=== PATIENT | male | born 1985 | race Caucasian/White ===

== ENCOUNTER 2016-10-07 22:02 | Emergency (ER) | payer SELFPAY ==
[~2016-10-07] VITALS: Ht 162.6 cm; Wt 81.6 kg
[2016-10-07 22:05] VITALS: BP 140/89
[2016-10-07] MEDS ORDERED: ACETAMINOPHEN EXTRA STRENGTH 500 MG TAB ONE (23:32)
--- NOTE | 2016-10-07 23:48 | NUR ---
PT TAKEN TO BED 1
[2016-10-08] MEDS ORDERED: ONDANSETRON 4 MG/2 ML VIAL IVP ONE (00:05)
[2016-10-08] MEDS ORDERED: NACL 0.9% 1,000 ML IV ONE (00:05)
--- NOTE | 2016-10-08 00:10 | NUR ---
PATIENT PRESENTS TO ED WITH HEADACHE . PT STATES HE HAS BEEN FEELING NAUSEOUS AND AND VOMITING FOR 3 DAYS AND THAT TYLENOL ONL HELPS MOMENTARILY AND THEN IT CAUSES HEADACHE TO WORSEN . DENIES DIARRHEA; SKIN IS PINK/WARM/DRY; AAOX4 WITH EVEN AND STEADY GAIT; LUNGS CLEAR BL; HR EVEN AND REGULAR; PT DENIES ANY FEVER, CP, SOB, OR COUGH AT THIS TIME; PATIENT STATES PAIN OF 8/10 AT THIS TIME; VSS; PATIENT POSITIONED FOR COMFORT; HOB ELEVATED; BEDRAILS UP X2; BED DOWN. ER MD MADE AWARE OF PT STATUS.
[2016-10-08 02:48] VITALS: BP 124/73
--- NOTE | 2016-10-08 02:50 | NUR ---
Patient discharged with v/s stable. Written and verbal after care instructions given and explained. Patient alert, oriented and verbalized understanding of instructions. Ambulatory with steady gait. All questions addressed prior to discharge. ID band removed. Patient advised to follow up with PMD. Rx of ONDANSETRON given. Patient educated on indication of medication including possible reaction and side effects. Opportunity to ask questions provided and answered.
== END 2016-10-08 02:50 | disposition home or self-care (01) ==
LOC: MED 22:02
DX: B34.9 Viral infection, unspecified (principal)
CPT/HCPCS: 96361; 96374; 99284; J2405; J7030

== ENCOUNTER 2024-04-03 06:36 | Emergency (ER) | payer BC ==
[~2024-04-03] VITALS: Ht 162.6 cm; Wt 77.1 kg
[2024-04-03 06:49] VITALS: BP 147/110; PULSE 108; RESP 16; TEMP 97.2; O2SAT 97
[2024-04-03 07:32] LABS: BASOPHILS # (AUTO) 0.1 K/uL (0.00-0.22); BASOPHILS % (AUTO) 0.6 % (0.0-2.0); EOSINOPHILS # (AUTO) 0.1 K/uL (0-0.4); EOSINOPHILS % (AUTO) 0.8 % (0.0-4.0); HEMATOCRIT 45.4 % (36-52); HEMOGLOBIN 16.1 g/dL (12.0-18.0); LYMPHOCYTES # (AUTO) 1.1 K/uL (2.0-11.5); LYMPHOCYTES % (AUTO) 11.1 % (20.5-51.1); MEAN CORPUSCULAR HEMOGLOBIN 31 pg (27-31); MEAN CORPUSCULAR HGB CONC 35 g/dL (33-37); MEAN CORPUSCULAR VOLUME 88.8 fL (80-94); MONOCYTES # (AUTO) 0.5 K/uL (0.8-1.0); MONOCYTES % (AUTO) 4.7 % (1.7-9.3); NEUTROPHILS # (AUTO) 8.2 K/uL (1.8-7.7); NEUTROPHILS % (AUTO) 82.8 % (42.2-75.2); PLATELET COUNT (AUTO) 263 K/uL (140-450); RED BLOOD CELL COUNT(AUTO) 5.11 MIL/uL (4.20-6.10); RED CELL DISTRIBUTION WIDTH 12.9 % (11.6-13.7); WHITE BLOOD COUNT (AUTO) 9.9 K/uL (4.8-10.8)
[2024-04-03] MEDS: NACL 0.9% 1,000 ML IV ONE (07:39)
[2024-04-03] MEDS: ONDANSETRON 4 MG/2 ML VIAL IVP ONE (07:39)
[2024-04-03 07:47] LABS: ANION GAP 15.7 (8-16); CARBON DIOXIDE 26.2 mmol/L (21-32); POTASSIUM 3.9 mmol/L (3.5-5.1)
[2024-04-03 07:51] LABS: ALBUMIN 4.1 g/dL (3.4-5.0); BILIRUBIN,DIRECT 0.4 mg/dL (0.0-0.3); TOTAL BILIRUBIN 1.6 mg/dL (0.0-1.0); TOTAL PROTEIN, SERUM 8.9 g/dL (6.4-8.2)
[2024-04-03] MEDS ORDERED: ONDA-188 SL (08:12)
[2024-04-03 08:25] VITALS: BP 143/98; PULSE 86; RESP 20; TEMP 98.1; O2SAT 96
[2024-04-03 08:30] LABS: FLU A ANTIGEN NEGATIVE (NEGATIVE); FLU B ANTIGEN NEGATIVE (NEGATIVE)
== END 2024-04-03 08:25 | disposition home or self-care (01) ==
LOC: MED 06:36
DX: A08.4 Viral intestinal infection, unspecified (principal); R50.9 Fever, unspecified; E11.9 Type 2 diabetes mellitus without complications; I10 Essential (primary) hypertension; Z20.822 Contact with and (suspected) exposure to COVID-19; Z79.1 Long term (current) use of non-steroidal anti-inflammatories (NSAID)
CPT/HCPCS: 36415; 80048; 80076; 83690; 85025; 87426; 87804; 96361; 96374; 99283; J2405; J7030

== ENCOUNTER 2024-05-22 19:58 | Emergency (ER) | payer BC ==
[~2024-05-22] VITALS: Ht 162.6 cm; Wt 80.7 kg
[~2024-05-22 19:58] MED LIST: ONDA-188 SL
[2024-05-22 20:04] VITALS: BP 147/92; PULSE 78; RESP 16; TEMP 97.6; O2SAT 100
[2024-05-22 20:06] VITALS: O2SAT 99
[2024-05-22] MEDS ORDERED: IBUP-2213 PO (20:48)
[2024-05-22] MEDS ORDERED: BACI-418 TP (20:48)
[2024-05-22] MEDS ORDERED: AMOX1TAB8 PO (20:48)
[2024-05-22] MEDS: IBUPROFEN 600 MG TAB PO ONE (20:49)
[2024-05-22] MEDS: LIDOCAINE MPF 1% 10 MG/ML VIAL INJ ONE (20:51)
[2024-05-22] MEDS: BACITRACIN OINT 500 UNITS/GM PKT TP ONE (21:10)
== END 2024-05-22 21:11 | disposition home or self-care (01) ==
LOC: MED 19:58
DX: S71.111A Laceration without foreign body, right thigh, initial encounter (principal); S60.412A Abrasion of right middle finger, initial encounter; E11.9 Type 2 diabetes mellitus without complications; I10 Essential (primary) hypertension; Z79.1 Long term (current) use of non-steroidal anti-inflammatories (NSAID); Z79.2 Long term (current) use of antibiotics; Z79.899 Other long term (current) drug therapy; W54.0XXA Bitten by dog, initial encounter; Y93.89 Activity, other specified; Y92.89 Other specified places as the place of occurrence of the external cause; Y99.8 Other external cause status
CPT/HCPCS: 12001; 99283; J2001; 99285; 99291